=== PATIENT | female | born 1975 | race Caucasian/White ===

== ENCOUNTER 2016-06-21 11:15 | Emergency (ER) | payer OTHER ==
[2016-06-21 11:21] VITALS: O2SAT 97
--- NOTE | 2016-06-21 11:58 | DX ---
Left Ankle, Three Views June 21, 2016 at 11:36 a.m. Clinical History: 40-year-old female who rolled her ankle stepping off of a curb. Comparison Study: None. Findings: There is a transversely-oriented fracture involving the distal fibular metaphysis with an a ssociated anterior tibiotalar ankle joint effusion. The mortise is still maintained. The talar dome i s well-contoured. The subtalar joint is normal. There is an unfused os peroneum along the lateral mid foot, a normal variant. The base of fifth metatarsal is normal. There is a tiny dorsal navicular spur . There is a bone island associated with the central calcaneus. Impression: Nondisplaced, transversely-oriented distal fibular metaphyseal fracture with an associate d ankle joint effusion.
[2016-06-21] MEDS ORDERED: IBUPROFEN 600 MG TAB PO ONE (12:05)
[2016-06-21] MEDS ORDERED: HYDROCODONE/APAP 5/325 TAB PO ONE (12:05)
--- NOTE | 2016-06-21 12:07 | EDPHY ---
H & P Stated Complaint: L Ankle injury "rolled & cracked" HPI/ROS: Chief complaint: Left ankle injury History of present illness: This is a 40-year-old female who presents to the emergency department for left ankle injury. Patient reports just prior to arrival she misstepped rolling her ankle inward. She felt and heard a crack. Since then she has had pain. It makes it difficult to ambulate. She denies other associated signs or symptoms including no open wounds, no paresthesias, no abnormal coolness to the foot. No other trauma reported. - Personal History LMP (Females 10-55): 15-21 Days Ago Current Tetanus/Diphtheria Vaccine: Yes Current Tetanus Diphtheria and Acellular Pertussis (TDAP): Yes Tetanus Vaccine Date: THINKS <10YRS - Medical/Surgical History Hx Asthma: No Hx Chronic Respiratory Disease: No Hx Diabetes: No Hx Cardiac Disease: No Hx Renal Disease: No Hx Cirrhosis: No Hx Alcoholism: No Hx HIV/AIDS: No Hx Splenectomy or Spleen Trauma: No - Social History Smoking Status: Former smoker - Physical Exam Exam: General appearance: Alert, nontoxic Musculoskeletal: Tenderness to the lateral aspect of the ankle. The knee, lower leg and foot are nontender. She is moving all digits in the foot. She can move the knee without difficulty. Vascular exam: Normal pulses and capillary refill in the foot Neurologic exam: The patient has normal sensation and motor function distal to the injury. Constitutional: Initial Vital Signs Temperature (C) 36.2 C 06/21/16 11:17 Heart Rate 70 06/21/16 11:17 Respiratory Rate 16 06/21/16 11:17 Blood Pressure 128/82 H 06/21/16 11:17 O2 Sat (%) 97 06/21/16 11:17 O2 Delivery Mode Room Air Allergies/Adverse Reactions: No Known Allergies Allergy (Unverified 05/18/12 23:25) Home Medications: Medication Instructions Recorded Miscellaneous Medical Supply [NO 05/18/12 HOME MEDS] Hydrocodone/APAP 5/325 [[place] 1 tab PO Q4 #10 tab 06/21/16 5/325 (*)] Medical Decision Making - Diagnostics Imaging: X-ray of the left ankle reveals a distal fibular fracture with ankle joint effusion Procedures: Procedure: Splint placement. A short-leg splint was applied. After application of the splint I returned and re-examined the patient. The splint was adequately immobilizing the joint and distal to the splint the patient's circulation and sensation was intact. ED Course/Re-evaluation: Patient seen under the supervision of my secondary supervising physician Dr. Rosa Maria Tabor. Patient presents to the emergency department for evaluation of a left ankle injury. The foot is neurovascularly intact. X-ray confirms a fracture. Patient is splinted. She will be discharged home. Home care is discussed. She is asked to follow up with Orthopedics through [facility] as she is a [facility] patient. Return precautions are given. Patient voiced understanding and agreement with plan. - Data Points Medications Given: Discontinued Medications Acetaminophen/Hydrocodone Bitart ([place] 5/325) 1 tab PO EDNOW ONE Stop: 06/21/16 12:06 Last Admin: 06/21/16 12:20 Dose: 1 tab Ibuprofen (Motrin) 600 mg PO EDNOW ONE Stop: 06/21/16 12:06 Last Admin: 06/21/16 12:20 Dose: 600 mg Departure - Departure Disposition: Home, Routine, Self-Care Clinical Impression: Ankle fracture, left Qualifiers: Encounter type: initial encounter Fracture type: closed Qualifier Code: ( [id number]) Other fracture of left lower leg, initial encounter for closed fracture Condition: Good Instructions: Ankle Fracture (ED), Splint Care (ED) Additional Instructions: Please call [facility] and arrange a follow-up appointment with orthopedics this week In regards to pain control see the following: Use ibuprofen 600 mg 3 times a day for the next 2-3 days for pain In addition You have been prescribed [place] for pain. [place] contains Tylenol, do not take extra Tylenol/acetaminophen/Apap with it. It is sedating. If symptoms worsen or new symptoms develop return to the emergency department for recheck Referrals: [place],. [Primary Care Provider] - As per Instructions Prescriptions: Hydrocodone/APAP 5/325 [[place] 5/325 (*)] 1 tab PO Q4 #10 tab
[2016-06-21 13:14] VITALS: BP 132/83; PULSE 75; RESP 15; TEMP 98.8
== END 2016-06-21 13:14 | disposition home or self-care (01) ==
DX: S82.892A Other fracture of left lower leg, initial encounter for closed fracture (principal); Z87.891 Personal history of nicotine dependence; X58.XXXA Exposure to other specified factors, initial encounter